=== PATIENT | male | born 1935 | race Caucasian/White ===

== ENCOUNTER 2017-03-24 08:42 | Day surgery (SDC) | payer OTHER ==
[2017-03-21 15:28] VITALS: BMI 24.9
[2017-03-24] MEDS ORDERED: PROPOFOL 20 ML ONE ×2 (10:19)
[2017-03-24 11:22] VITALS: TEMP 97.5
[2017-03-24 13:29] VITALS: BP 156/64; PULSE 60
--- NOTE | 2017-03-25 11:55 | PATH ---
Surgical Pathology Report Patient Name: JAREN COCHRAN [facility]. Rec. #: [id number] /Age/Gender: 1935 (Age: 82) / M Account: [id number] Location: [facility]-ENDOSCOPY Taken: 03/24/2017 Received: 03/24/2017 Reported: 03/25/2017 Physicians: Vipin Anderson M.D. Specimen(s) Received A: BX GASTRITIS B: BX GE JUNCTION Clinical History GERD, diverticular disease of colon, constipation Hiatal hernia, esophagitis, rule out Casillas's, gastritis, gastropathy, rule out metaplasia, poor prep, grade 2 hemorrhoids Final Diagnosis A. STOMACH, BIOPSY: HYPERPLASTIC FUNDIC GLAND POLYP WITH ASSOCIATED MODERATE CHRONIC GASTRITIS. ADDITIONAL PORTIONS OF GASTRIC MUCOSA WITH CHRONIC GASTRITIS AND INTESTINAL METAPLASIA. NO DYSPLASIA IDENTIFIED. MUCOSAL XANTHOMA PRESENT. IMMUNOSTAIN FOR H. PYLORI IS NEGATIVE. B. GE JUNCTION, BIOPSY: SQUAMOUS AND GASTRIC MUCOSA WITH ACUTE AND CHRONIC INFLAMMATION. NO INTESTINAL METAPLASIA IDENTIFIED (NO CASILLAS'S IDENTIFIED). Electronically Signed Marcelo Garcia M.D. Gross Description A. Received in formalin, labeled "biopsy gastritis" are 4 ruffin, irregular portions of soft tissue ranging from 0.1-0.3 cm. in greatest dimension. The specimens are submitted in toto in one cassette. B. Received in formalin, labeled "biopsy GE junction" are 2 ruffin, irregular portions of soft tissue measuring 0.1 and 0.2 cm. in greatest dimension. The specimens are submitted in toto in one cassette. /03/24/2017 saudi03/24/2017
== END 2017-03-24 12:40 | disposition home or self-care (01) ==
LOC: JASU-ENDO 08:42
PROVIDERS: ATTEND Internal Medicine Gastroenterology
PROC: 0DJD8ZZ Inspection of Lower Intestinal Tract, Via Natural or Artificial Opening Endoscopic (ICD-10-PCS; principal; 2017-03-24 10:00)
DX: Z12.11 Encounter for screening for malignant neoplasm of colon (principal); K59.00 Constipation, unspecified; K64.8 Other hemorrhoids
CPT/HCPCS: 88305-TC; 88342-TC

== ENCOUNTER 2017-09-26 07:57 | Day surgery (SDC) | payer OTHER ==
[2017-09-26 08:53] VITALS: BMI 24.9
[2017-09-26] MEDS ORDERED: PROPOFOL 20 ML ONE ×2 (09:41)
[2017-09-26 10:27] VITALS: TEMP 97.6
[2017-09-26 11:44] VITALS: BP 155/54; PULSE 53
--- NOTE | 2017-09-29 16:49 | PATH ---
Surgical Pathology Report Patient Name: JAREN COCHRAN [facility]. Rec. #: [id number] /Age/Gender: 1935 (Age: 82) / M Account: [id number] Location: [facility]-ENDOSCOPY Taken: 09/26/2017 Received: 09/26/2017 Reported: 09/29/2017 Physicians: Vipin Anderson M.D. Specimen(s) Received A: POLYPS SIGMOID B: BX POLYP TRANSVERSE COLON C: BX POLYP HEPATIC FLEXURE D: ASCENDING COLON POLYP Clinical History Constipation Diverticulosis, colon polyps, small hemorrhoids Final Diagnosis A. SIGMOID COLON, POLYP, BIOPSY: TUBULAR ADENOMA. HYPERPLASTIC POLYP(S). B. TRANSVERSE COLON, POLYP, BIOPSY: HYPERPLASTIC POLYP. C. HEPATIC FLEXURE, POLYP, BIOPSY: POLYPOID COLONIC MUCOSA WITH PROMINENT LYMPHOID AGGREGATE AND SUPERFICIAL HYPERPLASTIC FEATURES. D. ASCENDING COLON, POLYP, BIOPSY: HYPERPLASTIC POLYP. Electronically Signed Catherine Gardiner M.D. Gross Description A. Received in formalin, labeled "biopsy sigmoid polyps" are 4 ruffin, irregular portions of soft tissue ranging from 0.2-0.3 cm. in greatest dimension. The specimens are submitted in toto in one cassette. B. Received in formalin, labeled "biopsy polyp transverse colon" are 2 ruffin, irregular portions of soft tissue averaging 0.3 cm. in greatest dimension. The specimens are submitted in toto in one cassette. C. Received in formalin, labeled "biopsy polyp hepatic flexure" is a ruffin, irregular portion of soft tissue measuring 1.1 cm. in greatest dimension. The specimen is submitted in toto in one cassette. D. Received in formalin, labeled "biopsy polyp ascending colon" are 3 ruffin, irregular portions of soft tissue ranging from 0.1-0.3 cm. in greatest dimension. The specimens are submitted in toto in one cassette. 09/26/201709/26/2017
== END 2017-09-26 11:35 | disposition home or self-care (01) ==
LOC: JASU-ENDO 07:57
PROVIDERS: ATTEND Internal Medicine Gastroenterology
PROC: 0DBK8ZX Excision of Ascending Colon, Via Natural or Artificial Opening Endoscopic, Diagnostic (ICD-10-PCS; 2017-09-26)
PROC: 0DBL8ZX Excision of Transverse Colon, Via Natural or Artificial Opening Endoscopic, Diagnostic (ICD-10-PCS; 2017-09-26)
PROC: 0DBN8ZX Excision of Sigmoid Colon, Via Natural or Artificial Opening Endoscopic, Diagnostic (ICD-10-PCS; principal; 2017-09-26 09:30)
DX: K57.30 Diverticulosis of large intestine without perforation or abscess without bleeding (principal); D12.2 Benign neoplasm of ascending colon; D12.5 Benign neoplasm of sigmoid colon; D12.3 Benign neoplasm of transverse colon; K64.8 Other hemorrhoids; K59.00 Constipation, unspecified
CPT/HCPCS: 88305-TC

== ENCOUNTER 2018-09-13 01:17 | Emergency (ER) | payer OTHER ==
[2018-09-13 01:35] VITALS: BP 173/61; PULSE 60; TEMP 97.9; BMI 30.1
--- NOTE | 2018-09-13 02:42 | PDOC ---
Attending Attestation - Resident Resident Name: Sera Bull - ED Attending Attestation I have performed the following: I have examined & evaluated the patient, The case was reviewed & discussed with the resident, I agree w/resident's findings & plan
[2018-09-13] MEDS ORDERED: ACETAMINOPHEN 325 MG TABLET (FP) PO ONE (02:45)
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
== END 2018-09-13 05:17 | disposition home or self-care (01) ==
LOC: JER 01:17
DX: S20.211A Contusion of right front wall of thorax, initial encounter (principal); W10.8XXA Fall (on) (from) other stairs and steps, initial encounter; Y93.89 Activity, other specified; Y92.89 Other specified places as the place of occurrence of the external cause; Y99.8 Other external cause status; I10 Essential (primary) hypertension; E11.9 Type 2 diabetes mellitus without complications; Z79.84 Long term (current) use of oral hypoglycemic drugs; E78.5 Hyperlipidemia, unspecified
CPT/HCPCS: 71046-TC-FY; 99282-25

== ENCOUNTER 2020-10-12 12:18 | Emergency (ER) | payer OTHER ==
[2020-10-12 12:45] VITALS: BP 168/61; PULSE 73; TEMP 97.8; BMI 30.1
== END 2020-10-12 13:59 | disposition home or self-care (01) ==
LOC: JER 12:18
DX: U07.1 COVID-19 (principal)
CPT/HCPCS: 99283-25; C9803; U0003

== ENCOUNTER 2020-10-19 18:52 | Inpatient (IN) | payer OTHER ==
[2020-10-19 20:01] LABS: BASO % 0.1 % (0-2.0); EOS % 0.3 % (0-4.5); HEMATOCRIT 37.5 % (35.4-49); HEMOGLOBIN 12.1 GM/dL (11.7-16.9); LYMPH % 6.1 % (8-40); MCH 26.2 pg (25.7-33.7); MCHC 32.4 g/dl (32.0-35.9); MEAN CELL VOLUME 80.8 fl (80-96); MEAN PLT VOLUME 7.5 fl (7.5-11.1); MONO % 13.3 % (3.8-10.2); NEUT % 80.2 % (42.8-82.8); PLATELET COUNT 331 K/MM3 (134-434); RBC 4.63 M/mm3 (4.00-5.60); RDW 16.6 % (11.9-15.9); WHITE BLOOD COUNT 8.4 K/mm3 (4.0-10.0)
[2020-10-19 20:09] LABS: INR 1.07 (0.83-1.09); PROTHROMBIN TIME (PATIENT) 12.9 SEC (9.7-13.0)
[2020-10-19 20:11] LABS: ACTIVATED PTT 28.6 SECONDS (25.2-36.5)
[2020-10-19 20:20] LABS: BLOOD UREA NITROGEN 12.3 mg/dL (7-18); CALCIUM 7.8 mg/dL (8.5-10.1)
[2020-10-19 20:22] LABS: MAGNESIUM 1.7 mg/dL (1.8-2.4)
[2020-10-19 20:24] LABS: CREATININE 0.9 mg/dL (0.55-1.3)
[2020-10-19] MEDS ORDERED: SODIUM CHLORIDE 500 ML IV STA (20:24)
[2020-10-19 20:26] LABS: BILIRUBIN,TOTAL 0.8 mg/dL (0.2-1); PHOSPHOROUS 2.2 mg/dL (2.5-4.9); TOT PROT 7.2 g/dl (6.4-8.2)
[2020-10-19 20:29] LABS: N-TERMINAL BNP 525.6 pg/ml (5-450)
[2020-10-19] MEDS ORDERED: MAGNESIUM SULF 50% (8.12 MEQ/2 ML-1 GM VIAL) IVPB ONE (22:24)
[2020-10-19] MEDS ORDERED: ALBUTEROL SO4 HFA INHALER IH PRN (22:31)
[2020-10-19] MEDS ORDERED: MAGNESIUM SULFATE IN WATER 2 GM/50 ML IVPB IVPB ONE (22:43)
[2020-10-19] MEDS ORDERED: AZITHROMYCIN IVPB 500 MG/250 ML BAG IVPB ONE (22:51)
[2020-10-19] MEDS ORDERED: CEFTRIAXONE 1 GM in DEXTROSE 5%-WATER - 50 ML IVPB ONE (22:52)
[2020-10-19 23:02] LABS: EPI CELLS 3 /uL (0-25.1); HYALINE CASTS 0 /uL (0-3.1); URINE APPEARANCE CLEAR; URINE BACTERIA 0 /uL (0-1359); URINE BILIRUBIN NEGATIVE (NEGATIVE); URINE COLOR YELLOW; URINE GLUCOSE (UA) NEGATIVE (NEGATIVE); URINE KETONE 1+ (NEGATIVE); URINE LEUK ESTERASE NEGATIVE (NEGATIVE); URINE NITRITE NEGATIVE (NEGATIVE); URINE PROTEIN 3+ (NEGATIVE); URINE RBC 11 /uL (0-23.9); URINE WBC 3 /uL (0-25.8)
[2020-10-19 23:29] LABS: CALCIUM 7.6 mg/dL (8.5-10.1)
[2020-10-19 23:30] LABS: BLOOD UREA NITROGEN 12.2 mg/dL (7-18)
[2020-10-19 23:33] LABS: CREATININE 0.8 mg/dL (0.55-1.3)
[2020-10-20] MEDS ORDERED: CEFTRIAXONE 1 GM/50 ML BAG ONE (00:04)
[2020-10-20] MEDS ORDERED: AZITHROMYCIN IVPB 500 MG/250 ML BAG IVPB ONE (00:04)
[2020-10-20] MEDS ORDERED: ACETAMINOPHEN 500 MG TABLET (FP) PO ONE (05:25)
[2020-10-20] MEDS ORDERED: SODIUM CHLORIDE 250 ML IV STA (06:06)
[2020-10-20 08:23] LABS: BASO % 0.4 % (0-2.0); EOS % 0.1 % (0-4.5); HEMATOCRIT 35.7 % (35.4-49); HEMOGLOBIN 11.5 GM/dL (11.7-16.9); LYMPH % 6.1 % (8-40); MCH 25.9 pg (25.7-33.7); MCHC 32.1 g/dl (32.0-35.9); MEAN CELL VOLUME 80.7 fl (80-96); MEAN PLT VOLUME 7.9 fl (7.5-11.1); MONO % 10.9 % (3.8-10.2); NEUT % 82.5 % (42.8-82.8); PLATELET COUNT 292 K/MM3 (134-434); RBC 4.42 M/mm3 (4.00-5.60); WHITE BLOOD COUNT 8.3 K/mm3 (4.0-10.0)
[2020-10-20 08:38] LABS: BLOOD UREA NITROGEN 11.5 mg/dL (7-18)
[2020-10-20 08:39] LABS: CALCIUM 7.5 mg/dL (8.5-10.1)
[2020-10-20 08:40] LABS: ALBUMIN 2.8 g/dl (3.4-5.0); MAGNESIUM 2.5 mg/dL (1.8-2.4)
[2020-10-20 08:43] LABS: CREATININE 0.8 mg/dL (0.55-1.3)
[2020-10-20 08:45] LABS: BILIRUBIN,TOTAL 0.9 mg/dL (0.2-1)
[2020-10-20] MEDS ORDERED: DEXTROSE 5%-WATER - 50 ML IVPB ONE (09:23)
[2020-10-20] MEDS ORDERED: cefTRIAXone SODIUM 1 GM VIAL ONE (09:23)
[2020-10-20] MEDS: ZINC SULFATE 220 MG CAPSULE (FP) PO SCH (09:36)
[2020-10-20] MEDS: ASCORBIC ACID 500 MG TABLET (FP) PO SCH (09:36)
[2020-10-20] MEDS: CHOLECALCIFEROL (VIT D3) 1,000 UNIT (25 MCG) TABLET PO SCH (09:36)
[2020-10-20] MEDS: AZITHROMYCIN IVPB 500 MG/250 ML BAG IVPB SCH (09:37)
[2020-10-20] MEDS ORDERED: ENOXAPARIN NA (PORCINE) 40 MG/0.4 ML DISP.SYRIN SQ SCH (10:00)
[2020-10-20 10:17] LABS: URIC ACID 4.1 mg/dL (2.6-7.2)
[2020-10-20] MEDS: CEFTRIAXONE 1 GM in DEXTROSE 5%-WATER - 50 ML IVPB SCH (10:41)
[2020-10-20] MEDS ORDERED: REMDESIVIR 200 MG in SODIUM CHLORIDE 210 ML IVPB ONE (13:00)
[2020-10-20] MEDS: APIXABAN 5 MG TABLET PO SCH ×2 (13:39→22:48)
[2020-10-20] MEDS: SODIUM CHLORIDE 1,000 ML IV SCH (13:39)
[2020-10-20 15:26] LABS: BLOOD UREA NITROGEN 9.6 mg/dL (7-18)
[2020-10-20 15:30] LABS: CREATININE 0.8 mg/dL (0.55-1.3)
[2020-10-20] MEDS ORDERED: INSULIN SLIDING SCALE (NOVOLOG) 1 VIAL SQ SCH (16:30)
[2020-10-20] MEDS: INSULIN SLIDING SCALE (NOVOLOG) 1 VIAL SQ SCH ×2 (17:30→22:48)
[2020-10-20] MEDS: ATORVASTATIN CA 10 MG TABLET (FP) PO SCH (22:47)
[2020-10-20] MEDS: CARVEDILOL 3.125 MG TABLET (FP) PO SCH (22:48)
[2020-10-21] MEDS: INSULIN SLIDING SCALE (NOVOLOG) 1 VIAL SQ SCH ×4 (06:26→22:18)
[2020-10-21 07:17] LABS: BASO % 0.5 % (0-2.0); EOS % 0.5 % (0-4.5); HEMATOCRIT 35.2 % (35.4-49); HEMOGLOBIN 11.2 GM/dL (11.7-16.9); LYMPH % 8.9 % (8-40); MCH 25.5 pg (25.7-33.7); MCHC 31.9 g/dl (32.0-35.9); MEAN PLT VOLUME 7.6 fl (7.5-11.1); MONO % 12.9 % (3.8-10.2); NEUT % 77.2 % (42.8-82.8); PLATELET COUNT 359 K/MM3 (134-434); RDW 16.4 % (11.9-15.9); WHITE BLOOD COUNT 8.1 K/mm3 (4.0-10.0)
[2020-10-21 07:31] LABS: CALCIUM 7.2 mg/dL (8.5-10.1)
[2020-10-21 07:32] LABS: ALBUMIN 2.4 g/dl (3.4-5.0); BLOOD UREA NITROGEN 11.6 mg/dL (7-18)
[2020-10-21 07:35] LABS: CREATININE 0.7 mg/dL (0.55-1.3)
[2020-10-21 07:36] LABS: BILIRUBIN,TOTAL 0.8 mg/dL (0.2-1); TOT PROT 6.4 g/dl (6.4-8.2)
[2020-10-21] MEDS ORDERED: cefTRIAXone SODIUM 1 GM VIAL ONE (08:57)
[2020-10-21] MEDS ORDERED: DEXTROSE 5%-WATER - 50 ML IVPB ONE (08:58)
[2020-10-21] MEDS: CARVEDILOL 3.125 MG TABLET (FP) PO SCH ×2 (09:11→22:07)
[2020-10-21] MEDS: ZINC SULFATE 220 MG CAPSULE (FP) PO SCH (09:12)
[2020-10-21] MEDS: CEFTRIAXONE 1 GM in DEXTROSE 5%-WATER - 50 ML IVPB SCH (09:12)
[2020-10-21] MEDS: TAMSULOSIN HCL 0.4 MG CAP PO SCH (09:12)
[2020-10-21] MEDS: AZITHROMYCIN IVPB 500 MG/250 ML BAG IVPB SCH (09:12)
[2020-10-21] MEDS: GABAPENTIN 300 MG CAPSULE PO SCH (09:12)
[2020-10-21] MEDS: APIXABAN 5 MG TABLET PO SCH ×2 (09:12→22:07)
[2020-10-21] MEDS: ASCORBIC ACID 500 MG TABLET (FP) PO SCH (09:12)
[2020-10-21] MEDS: CHOLECALCIFEROL (VIT D3) 1,000 UNIT (25 MCG) TABLET PO SCH (09:12)
[2020-10-21] MEDS: DEXAMETHASONE SOD PHOSPHATE 4 MG/1 ML VIAL IVPUSH SCH (09:15)
[2020-10-21 11:19] LABS: ERYTHROCYTE SEDIMENTATION RATE 82 mm/hr (0-20)
[2020-10-21] MEDS: ACETAMINOPHEN 325 MG TABLET (FP) PO PRN (11:19)
[2020-10-21] MEDS ORDERED: PT OWN MED DRAWER 7, Y5N ONE (12:21)
[2020-10-21] MEDS: REMDESIVIR 100 MG in SODIUM CHLORIDE 230 ML IVPB SCH (12:44)
[2020-10-21] MEDS: SODIUM CHLORIDE 1,000 ML IV SCH (18:02)
[2020-10-21] MEDS: ATORVASTATIN CA 10 MG TABLET (FP) PO SCH (22:07)
[2020-10-22] MEDS: INSULIN SLIDING SCALE (NOVOLOG) 1 VIAL SQ SCH ×4 (06:20→21:33)
[2020-10-22] MEDS: SODIUM CHLORIDE 1,000 ML IV SCH ×2 (06:20→13:30)
[2020-10-22 06:59] LABS: HEMOGLOBIN 11.5 GM/dL (11.7-16.9); MCH 26.7 pg (25.7-33.7); MEAN CELL VOLUME 80.9 fl (80-96); MEAN PLT VOLUME 7.7 fl (7.5-11.1); PLATELET COUNT 346 K/MM3 (134-434); RBC 4.32 M/mm3 (4.00-5.60); RDW 16.4 % (11.9-15.9); WHITE BLOOD COUNT 9.5 K/mm3 (4.0-10.0)
[2020-10-22 07:16] LABS: CALCIUM 7.2 mg/dL (8.5-10.1)
[2020-10-22 07:17] LABS: BLOOD UREA NITROGEN 15.9 mg/dL (7-18); MAGNESIUM 2.5 mg/dL (1.8-2.4)
[2020-10-22 07:18] LABS: BILIRUBIN,TOTAL 0.6 mg/dL (0.2-1)
[2020-10-22 07:20] LABS: CREATININE 0.6 mg/dL (0.55-1.3)
[2020-10-22] MEDS ORDERED: cefTRIAXone SODIUM 1 GM VIAL ONE (09:20)
[2020-10-22] MEDS ORDERED: DEXTROSE 5%-WATER - 50 ML IVPB ONE (09:20)
[2020-10-22] MEDS: CEFTRIAXONE 1 GM in DEXTROSE 5%-WATER - 50 ML IVPB SCH (09:27)
[2020-10-22] MEDS: DEXAMETHASONE SOD PHOSPHATE 4 MG/1 ML VIAL IVPUSH SCH (09:28)
[2020-10-22] MEDS: CHOLECALCIFEROL (VIT D3) 1,000 UNIT (25 MCG) TABLET PO SCH (09:29)
[2020-10-22] MEDS: ZINC SULFATE 220 MG CAPSULE (FP) PO SCH (09:29)
[2020-10-22] MEDS: TAMSULOSIN HCL 0.4 MG CAP PO SCH (09:29)
[2020-10-22] MEDS: APIXABAN 5 MG TABLET PO SCH ×2 (09:29→21:33)
[2020-10-22] MEDS: GABAPENTIN 300 MG CAPSULE PO SCH (09:29)
[2020-10-22] MEDS: CARVEDILOL 3.125 MG TABLET (FP) PO SCH ×2 (09:29→21:33)
[2020-10-22] MEDS: ASCORBIC ACID 500 MG TABLET (FP) PO SCH (09:29)
[2020-10-22] MEDS: AZITHROMYCIN IVPB 500 MG/250 ML BAG IVPB SCH (10:33)
[2020-10-22 10:38] LABS: ERYTHROCYTE SEDIMENTATION RATE 80 mm/hr (0-20)
[2020-10-22] MEDS: REMDESIVIR 100 MG in SODIUM CHLORIDE 230 ML IVPB SCH (13:28)
[2020-10-22] MEDS: ATORVASTATIN CA 10 MG TABLET (FP) PO SCH (21:33)
[2020-10-23] MEDS: INSULIN SLIDING SCALE (NOVOLOG) 1 VIAL SQ SCH ×4 (06:37→21:54)
[2020-10-23] MEDS: SODIUM CHLORIDE 1,000 ML IV SCH ×2 (06:37→13:05)
[2020-10-23] MEDS ORDERED: cefTRIAXone SODIUM 1 GM VIAL ONE (08:41)
[2020-10-23] MEDS ORDERED: DEXTROSE 5%-WATER - 50 ML IVPB ONE (08:42)
[2020-10-23] MEDS: GABAPENTIN 300 MG CAPSULE PO SCH (09:05)
[2020-10-23] MEDS: TAMSULOSIN HCL 0.4 MG CAP PO SCH (09:05)
[2020-10-23] MEDS: ZINC SULFATE 220 MG CAPSULE (FP) PO SCH (09:05)
[2020-10-23] MEDS: CHOLECALCIFEROL (VIT D3) 1,000 UNIT (25 MCG) TABLET PO SCH (09:06)
[2020-10-23] MEDS: AZITHROMYCIN IVPB 500 MG/250 ML BAG IVPB SCH (09:06)
[2020-10-23] MEDS: APIXABAN 5 MG TABLET PO SCH ×2 (09:06→21:48)
[2020-10-23] MEDS: DEXAMETHASONE SOD PHOSPHATE 4 MG/1 ML VIAL IVPUSH SCH (09:06)
[2020-10-23] MEDS: CARVEDILOL 3.125 MG TABLET (FP) PO SCH ×2 (09:06→21:48)
[2020-10-23] MEDS: ASCORBIC ACID 500 MG TABLET (FP) PO SCH (09:06)
[2020-10-23] MEDS: CEFTRIAXONE 1 GM in DEXTROSE 5%-WATER - 50 ML IVPB SCH (10:25)
[2020-10-23 11:59] LABS: CALCIUM 7.4 mg/dL (8.5-10.1)
[2020-10-23 12:00] LABS: BLOOD UREA NITROGEN 13.5 mg/dL (7-18)
[2020-10-23 12:03] LABS: CREATININE 0.7 mg/dL (0.55-1.3)
[2020-10-23] MEDS ORDERED: POTASSIUM CHLORIDE TABS 20 MEQ TABLET.ER (FP) PO ONE (12:38)
[2020-10-23] MEDS: REMDESIVIR 100 MG in SODIUM CHLORIDE 230 ML IVPB SCH (13:05)
[2020-10-23] MEDS: DOCUSATE SODIUM 100 MG CAPSULE (FP) PO SCH ×2 (15:06→21:48)
[2020-10-23] MEDS: ATORVASTATIN CA 10 MG TABLET (FP) PO SCH (21:48)
[2020-10-23] MEDS: SENNOSIDES 8.6MG TABLET (FP) PO SCH (21:48)
[2020-10-24] MEDS: DOCUSATE SODIUM 100 MG CAPSULE (FP) PO SCH ×3 (06:15→21:08)
[2020-10-24] MEDS: INSULIN SLIDING SCALE (NOVOLOG) 1 VIAL SQ SCH ×4 (06:16→21:21)
[2020-10-24 08:18] LABS: BASO % 0.2 % (0-2.0); EOS % 0.1 % (0-4.5); HEMATOCRIT 34.1 % (35.4-49); HEMOGLOBIN 11.1 GM/dL (11.7-16.9); LYMPH % 5.3 % (8-40); MCH 26.3 pg (25.7-33.7); MCHC 32.6 g/dl (32.0-35.9); MEAN CELL VOLUME 80.6 fl (80-96); MEAN PLT VOLUME 7.5 fl (7.5-11.1); MONO % 6.8 % (3.8-10.2); NEUT % 87.6 % (42.8-82.8); PLATELET COUNT 268 K/MM3 (134-434); RBC 4.23 M/mm3 (4.00-5.60); RDW 16.6 % (11.9-15.9); WHITE BLOOD COUNT 12.5 K/mm3 (4.0-10.0)
[2020-10-24 08:29] LABS: ALBUMIN 2.2 g/dl (3.4-5.0); BLOOD UREA NITROGEN 12.9 mg/dL (7-18); CALCIUM 7.4 mg/dL (8.5-10.1)
[2020-10-24 08:32] LABS: CREATININE 0.6 mg/dL (0.55-1.3)
[2020-10-24 08:33] LABS: MAGNESIUM 1.7 mg/dL (1.8-2.4); PHOSPHOROUS 2.3 mg/dL (2.5-4.9)
[2020-10-24 08:34] LABS: BILIRUBIN,TOTAL 0.8 mg/dL (0.2-1); TOT PROT 6.1 g/dl (6.4-8.2)
[2020-10-24] MEDS ORDERED: MAGNESIUM OXIDE 400 MG TABLET (FP) PO ONE (09:00)
[2020-10-24] MEDS ORDERED: POTASSIUM CHLORIDE ORAL LIQUID 20 MEQ/15 ML PO ONE (09:00)
[2020-10-24] MEDS ORDERED: NAPH,MB-DB/K PH,MBDB POWDER PACKET PO ONE (09:00)
[2020-10-24] MEDS ORDERED: cefTRIAXone SODIUM 1 GM VIAL ONE (09:50)
[2020-10-24] MEDS ORDERED: DEXTROSE 5%-WATER - 50 ML IVPB ONE (09:50)
[2020-10-24] MEDS: ACETAMINOPHEN 325 MG TABLET (FP) PO PRN (10:22)
[2020-10-24] MEDS: CARVEDILOL 3.125 MG TABLET (FP) PO SCH ×2 (10:22→21:08)
[2020-10-24] MEDS: CHOLECALCIFEROL (VIT D3) 1,000 UNIT (25 MCG) TABLET PO SCH (10:22)
[2020-10-24] MEDS: APIXABAN 5 MG TABLET PO SCH ×2 (10:22→21:08)
[2020-10-24] MEDS: ASCORBIC ACID 500 MG TABLET (FP) PO SCH (10:22)
[2020-10-24] MEDS: ZINC SULFATE 220 MG CAPSULE (FP) PO SCH (10:23)
[2020-10-24] MEDS: GABAPENTIN 300 MG CAPSULE PO SCH (10:23)
[2020-10-24] MEDS: DEXAMETHASONE SOD PHOSPHATE 4 MG/1 ML VIAL IVPUSH SCH (10:23)
[2020-10-24] MEDS: TAMSULOSIN HCL 0.4 MG CAP PO SCH (10:23)
[2020-10-24] MEDS: AZITHROMYCIN IVPB 500 MG/250 ML BAG IVPB SCH (10:30)
[2020-10-24] MEDS: CEFTRIAXONE 1 GM in DEXTROSE 5%-WATER - 50 ML IVPB SCH (12:02)
[2020-10-24] MEDS: REMDESIVIR 100 MG in SODIUM CHLORIDE 230 ML IVPB SCH (14:58)
[2020-10-24] MEDS: ATORVASTATIN CA 10 MG TABLET (FP) PO SCH (21:08)
[2020-10-24] MEDS: SENNOSIDES 8.6MG TABLET (FP) PO SCH (21:08)
[2020-10-25] MEDS: DOCUSATE SODIUM 100 MG CAPSULE (FP) PO SCH ×3 (06:47→21:07)
[2020-10-25] MEDS: INSULIN (LEVEMIR) 100 UNITS/ML UNITS SQ SCH (06:48)
[2020-10-25] MEDS: INSULIN SLIDING SCALE (NOVOLOG) 1 VIAL SQ SCH ×4 (06:51→21:20)
[2020-10-25 08:50] LABS: BASO % 0.6 % (0-2.0); EOS % 0.1 % (0-4.5); HEMATOCRIT 34.9 % (35.4-49); HEMOGLOBIN 11.3 GM/dL (11.7-16.9); LYMPH % 4.4 % (8-40); MCH 26.2 pg (25.7-33.7); MCHC 32.4 g/dl (32.0-35.9); MEAN PLT VOLUME 7.6 fl (7.5-11.1); MONO % 9.2 % (3.8-10.2); NEUT % 85.7 % (42.8-82.8); PLATELET COUNT 235 K/MM3 (134-434); RDW 16.6 % (11.9-15.9); WHITE BLOOD COUNT 15.2 K/mm3 (4.0-10.0)
[2020-10-25 09:09] LABS: ALBUMIN 2.2 g/dl (3.4-5.0); BLOOD UREA NITROGEN 14.2 mg/dL (7-18); CALCIUM 7.5 mg/dL (8.5-10.1); MAGNESIUM 1.9 mg/dL (1.8-2.4)
[2020-10-25 09:12] LABS: CREATININE 0.6 mg/dL (0.55-1.3)
[2020-10-25 09:13] LABS: PHOSPHOROUS 2.9 mg/dL (2.5-4.9)
[2020-10-25] MEDS ORDERED: cefTRIAXone SODIUM 1 GM VIAL ONE (11:13)
[2020-10-25] MEDS ORDERED: DEXTROSE 5%-WATER - 50 ML IVPB ONE (11:13)
[2020-10-25] MEDS: ENOXAPARIN NA (PORCINE) 80 MG/0.8 ML DISP.SYRIN SQ SCH ×2 (11:23→21:07)
[2020-10-25] MEDS: AZITHROMYCIN IVPB 500 MG/250 ML BAG IVPB SCH (11:24)
[2020-10-25] MEDS: ZINC SULFATE 220 MG CAPSULE (FP) PO SCH (11:24)
[2020-10-25] MEDS: CEFTRIAXONE 1 GM in DEXTROSE 5%-WATER - 50 ML IVPB SCH (11:24)
[2020-10-25] MEDS: DEXAMETHASONE SOD PHOSPHATE 4 MG/1 ML VIAL IVPUSH SCH (11:24)
[2020-10-25] MEDS: CARVEDILOL 3.125 MG TABLET (FP) PO SCH ×2 (11:25→21:07)
[2020-10-25] MEDS: CHOLECALCIFEROL (VIT D3) 1,000 UNIT (25 MCG) TABLET PO SCH (11:25)
[2020-10-25] MEDS: ASCORBIC ACID 500 MG TABLET (FP) PO SCH ×2 (11:25→21:10)
[2020-10-25] MEDS: GABAPENTIN 300 MG CAPSULE PO SCH (11:25)
[2020-10-25] MEDS: TAMSULOSIN HCL 0.4 MG CAP PO SCH (11:26)
[2020-10-25] MEDS: ACETAMINOPHEN 325 MG TABLET (FP) PO PRN (12:09)
[2020-10-25 12:47] LABS: ANISOCYTOSIS 0; MACROCYTOSIS 0; OVALOCYTE 1+; PLATELET ESTIMATE NORMAL; TARGET CELLS 1+
[2020-10-25] MEDS: ATORVASTATIN CA 10 MG TABLET (FP) PO SCH (21:07)
[2020-10-25] MEDS: SENNOSIDES 8.6MG TABLET (FP) PO SCH (21:09)
[2020-10-25] MEDS: FAMOTIDINE 20 MG TABLET PO SCH (21:09)
[2020-10-26] MEDS: DOCUSATE SODIUM 100 MG CAPSULE (FP) PO SCH ×3 (06:07→23:46)
[2020-10-26] MEDS: INSULIN SLIDING SCALE (NOVOLOG) 1 VIAL SQ SCH ×4 (06:08→23:00)
[2020-10-26] MEDS: INSULIN (LEVEMIR) 100 UNITS/ML UNITS SQ SCH (06:10)
[2020-10-26 07:44] LABS: BASO % 0.9 % (0-2.0); HEMATOCRIT 34.5 % (35.4-49); HEMOGLOBIN 11.2 GM/dL (11.7-16.9); LYMPH % 4.8 % (8-40); MCH 26.5 pg (25.7-33.7); MCHC 32.5 g/dl (32.0-35.9); MEAN CELL VOLUME 81.4 fl (80-96); MEAN PLT VOLUME 8.2 fl (7.5-11.1); MONO % 13.2 % (3.8-10.2); NEUT % 81.1 % (42.8-82.8); PLATELET COUNT 188 K/MM3 (134-434); RBC 4.24 M/mm3 (4.00-5.60); RDW 16.5 % (11.9-15.9); WHITE BLOOD COUNT 13.4 K/mm3 (4.0-10.0)
[2020-10-26 07:48] LABS: ALBUMIN 2.2 g/dl (3.4-5.0); BLOOD UREA NITROGEN 15.8 mg/dL (7-18); CALCIUM 7.5 mg/dL (8.5-10.1)
[2020-10-26 07:49] LABS: MAGNESIUM 1.9 mg/dL (1.8-2.4)
[2020-10-26 07:51] LABS: CREATININE 0.7 mg/dL (0.55-1.3)
[2020-10-26 07:52] LABS: BILIRUBIN,TOTAL 0.8 mg/dL (0.2-1); PHOSPHOROUS 3.9 mg/dL (2.5-4.9)
[2020-10-26] MEDS ORDERED: cefTRIAXone SODIUM 1 GM VIAL ONE (08:53)
[2020-10-26] MEDS ORDERED: DEXTROSE 5%-WATER - 50 ML IVPB ONE (08:53)
[2020-10-26] MEDS: CEFTRIAXONE 1 GM in DEXTROSE 5%-WATER - 50 ML IVPB SCH (09:33)
[2020-10-26] MEDS: DEXAMETHASONE SOD PHOSPHATE 4 MG/1 ML VIAL IVPUSH SCH (09:34)
[2020-10-26] MEDS: CARVEDILOL 3.125 MG TABLET (FP) PO SCH ×2 (09:34→23:46)
[2020-10-26] MEDS: ASCORBIC ACID 500 MG TABLET (FP) PO SCH ×2 (09:34→23:46)
[2020-10-26] MEDS: CHOLECALCIFEROL (VIT D3) 1,000 UNIT (25 MCG) TABLET PO SCH (09:34)
[2020-10-26] MEDS: GABAPENTIN 300 MG CAPSULE PO SCH (09:34)
[2020-10-26] MEDS: TAMSULOSIN HCL 0.4 MG CAP PO SCH (09:34)
[2020-10-26] MEDS: ZINC SULFATE 220 MG CAPSULE (FP) PO SCH (09:35)
[2020-10-26] MEDS: FAMOTIDINE 20 MG TABLET PO SCH ×2 (09:35→23:46)
[2020-10-26] MEDS: ENOXAPARIN NA (PORCINE) 80 MG/0.8 ML DISP.SYRIN SQ SCH ×2 (09:35→23:47)
[2020-10-26] MEDS ORDERED: FUROSEMIDE 40 MG/4 ML INJECTABLE VIAL IVPUSH ONE (09:50)
[2020-10-26] MEDS: SODIUM BICARBONATE 650 MG TABLET PO SCH (16:44)
[2020-10-26] MEDS: SENNOSIDES 8.6MG TABLET (FP) PO SCH (23:46)
[2020-10-26] MEDS: ATORVASTATIN CA 10 MG TABLET (FP) PO SCH (23:46)
[2020-10-26] MEDS: ACETAMINOPHEN 325 MG TABLET (FP) PO PRN (23:47)
[2020-10-27] MEDS ORDERED: ASPIRIN 81 MG CHEWABLE TABLETS PO ONE (01:35)
[2020-10-27] MEDS ORDERED: ATORVASTATIN CA 40 MG TABLET (FP) PO ONE (06:00)
[2020-10-27] MEDS: DOCUSATE SODIUM 100 MG CAPSULE (FP) PO SCH ×3 (07:05→22:52)
[2020-10-27] MEDS: INSULIN (LEVEMIR) 100 UNITS/ML UNITS SQ SCH (07:05)
[2020-10-27] MEDS: INSULIN SLIDING SCALE (NOVOLOG) 1 VIAL SQ SCH ×4 (07:16→22:35)
[2020-10-27 07:30] LABS: BASO % 0.4 % (0-2.0); EOS % 0.2 % (0-4.5); HEMATOCRIT 34.1 % (35.4-49); HEMOGLOBIN 11.4 GM/dL (11.7-16.9); LYMPH % 8.4 % (8-40); MCH 26.9 pg (25.7-33.7); MCHC 33.5 g/dl (32.0-35.9); MEAN CELL VOLUME 80.1 fl (80-96); MEAN PLT VOLUME 8.2 fl (7.5-11.1); MONO % 14.6 % (3.8-10.2); NEUT % 76.4 % (42.8-82.8); PLATELET COUNT 213 K/MM3 (134-434); RBC 4.25 M/mm3 (4.00-5.60); RDW 16.2 % (11.9-15.9)
[2020-10-27 08:09] LABS: ALBUMIN 2.2 g/dl (3.4-5.0)
[2020-10-27 08:10] LABS: CALCIUM 7.5 mg/dL (8.5-10.1); MAGNESIUM 2.1 mg/dL (1.8-2.4)
[2020-10-27 08:12] LABS: CREATININE 0.7 mg/dL (0.55-1.3); PHOSPHOROUS 4.1 mg/dL (2.5-4.9)
[2020-10-27 08:14] LABS: BILIRUBIN,TOTAL 1.1 mg/dL (0.2-1); TOT PROT 6.3 g/dl (6.4-8.2)
[2020-10-27] MEDS ORDERED: cefTRIAXone SODIUM 1 GM VIAL ONE (09:09)
[2020-10-27] MEDS ORDERED: DEXTROSE 5%-WATER - 50 ML IVPB ONE (09:10)
[2020-10-27] MEDS: DEXAMETHASONE SOD PHOSPHATE 4 MG/1 ML VIAL IVPUSH SCH (10:11)
[2020-10-27] MEDS: ENOXAPARIN NA (PORCINE) 80 MG/0.8 ML DISP.SYRIN SQ SCH ×2 (10:12→22:52)
[2020-10-27] MEDS: GABAPENTIN 300 MG CAPSULE PO SCH (10:12)
[2020-10-27] MEDS: CEFTRIAXONE 1 GM in DEXTROSE 5%-WATER - 50 ML IVPB SCH (10:12)
[2020-10-27] MEDS: SODIUM BICARBONATE 650 MG TABLET PO SCH (10:12)
[2020-10-27] MEDS: CARVEDILOL 3.125 MG TABLET (FP) PO SCH ×2 (10:12→22:53)
[2020-10-27] MEDS: CHOLECALCIFEROL (VIT D3) 1,000 UNIT (25 MCG) TABLET PO SCH (10:12)
[2020-10-27] MEDS: FAMOTIDINE 20 MG TABLET PO SCH ×2 (10:12→22:52)
[2020-10-27] MEDS: ASCORBIC ACID 500 MG TABLET (FP) PO SCH ×2 (10:12→22:53)
[2020-10-27] MEDS: TAMSULOSIN HCL 0.4 MG CAP PO SCH (10:12)
[2020-10-27] MEDS: ZINC SULFATE 220 MG CAPSULE (FP) PO SCH (10:12)
[2020-10-27] MEDS: ASPIRIN 81 MG CHEWABLE TABLETS PO SCH (10:12)
[2020-10-27] MEDS ORDERED: CLOPIDOGREL BISULFATE 300 MG TABLET PO ONE (14:30)
[2020-10-27] MEDS: ACETAMINOPHEN 325 MG TABLET (FP) PO PRN (22:52)
[2020-10-27] MEDS: ATORVASTATIN CA 40 MG TABLET (FP) PO SCH (22:52)
[2020-10-27] MEDS: SENNOSIDES 8.6MG TABLET (FP) PO SCH (22:53)
[2020-10-28] MEDS: DOCUSATE SODIUM 100 MG CAPSULE (FP) PO SCH ×3 (07:13→21:33)
[2020-10-28] MEDS: INSULIN (LEVEMIR) 100 UNITS/ML UNITS SQ SCH (07:13)
[2020-10-28] MEDS: INSULIN SLIDING SCALE (NOVOLOG) 1 VIAL SQ SCH ×4 (07:18→21:25)
[2020-10-28] MEDS ORDERED: cefTRIAXone SODIUM 1 GM VIAL ONE (08:27)
[2020-10-28] MEDS ORDERED: DEXTROSE 5%-WATER - 50 ML IVPB ONE (08:28)
[2020-10-28 08:46] LABS: BASO % 0.1 % (0-2.0); EOS % 0.4 % (0-4.5); HEMATOCRIT 36.2 % (35.4-49); LYMPH % 11.1 % (8-40); MCH 26.8 pg (25.7-33.7); MEAN CELL VOLUME 81.2 fl (80-96); MEAN PLT VOLUME 8.9 fl (7.5-11.1); MONO % 16.4 % (3.8-10.2); PLATELET COUNT 234 K/MM3 (134-434); RBC 4.46 M/mm3 (4.00-5.60); RDW 16.5 % (11.9-15.9); WHITE BLOOD COUNT 8.9 K/mm3 (4.0-10.0)
[2020-10-28 09:13] LABS: CALCIUM 7.6 mg/dL (8.5-10.1); CHOLESTEROL 98 mg/dL (50-200); TRIGLYCERIDES 96 mg/dL (0-150)
[2020-10-28 09:14] LABS: ALBUMIN 2.2 g/dl (3.4-5.0); BLOOD UREA NITROGEN 18.8 mg/dL (7-18); LDH 471 U/L (87-246); LDL CHOLESTEROL (ONLY SJRH) 62 mg/dL (5-100); MAGNESIUM 1.8 mg/dL (1.8-2.4)
[2020-10-28 09:16] LABS: HDL CHOLESTEROL 28 mg/dL (40-60)
[2020-10-28 09:17] LABS: CREATININE 0.6 mg/dL (0.55-1.3); PHOSPHOROUS 3.5 mg/dL (2.5-4.9)
[2020-10-28 09:18] LABS: BILIRUBIN,TOTAL 0.9 mg/dL (0.2-1)
[2020-10-28 09:19] LABS: TOT PROT 6.5 g/dl (6.4-8.2)
[2020-10-28] MEDS: CEFTRIAXONE 1 GM in DEXTROSE 5%-WATER - 50 ML IVPB SCH (09:30)
[2020-10-28] MEDS: GABAPENTIN 300 MG CAPSULE PO SCH (09:31)
[2020-10-28] MEDS: ASCORBIC ACID 500 MG TABLET (FP) PO SCH ×2 (09:31→21:33)
[2020-10-28] MEDS: TAMSULOSIN HCL 0.4 MG CAP PO SCH (09:31)
[2020-10-28] MEDS: CHOLECALCIFEROL (VIT D3) 1,000 UNIT (25 MCG) TABLET PO SCH (09:31)
[2020-10-28] MEDS: SODIUM BICARBONATE 650 MG TABLET PO SCH (09:31)
[2020-10-28] MEDS: FAMOTIDINE 20 MG TABLET PO SCH ×2 (09:31→21:34)
[2020-10-28] MEDS: ZINC SULFATE 220 MG CAPSULE (FP) PO SCH (09:31)
[2020-10-28] MEDS: CARVEDILOL 3.125 MG TABLET (FP) PO SCH ×2 (09:31→21:34)
[2020-10-28] MEDS: DEXAMETHASONE SOD PHOSPHATE 4 MG/1 ML VIAL IVPUSH SCH (09:31)
[2020-10-28] MEDS: ENOXAPARIN NA (PORCINE) 80 MG/0.8 ML DISP.SYRIN SQ SCH ×2 (09:31→21:34)
[2020-10-28] MEDS: ASPIRIN 81 MG CHEWABLE TABLETS PO SCH (09:31)
[2020-10-28] MEDS: CLOPIDOGREL BISULFATE 75 MG TABLET (FP) PO SCH (09:31)
[2020-10-28] MEDS: SENNOSIDES 8.6MG TABLET (FP) PO SCH (21:33)
[2020-10-28] MEDS: ATORVASTATIN CA 40 MG TABLET (FP) PO SCH (21:34)
[2020-10-29] MEDS ORDERED: INSULIN (NOVOLOG) ASPART 100 UNITS/ML 10ML VIAL ONE (06:02)
[2020-10-29] MEDS: INSULIN (LEVEMIR) 100 UNITS/ML UNITS SQ SCH (06:16)
[2020-10-29] MEDS: DOCUSATE SODIUM 100 MG CAPSULE (FP) PO SCH ×3 (06:16→21:40)
[2020-10-29] MEDS: INSULIN SLIDING SCALE (NOVOLOG) 1 VIAL SQ SCH ×4 (06:18→21:41)
[2020-10-29] MEDS ORDERED: cefTRIAXone SODIUM 1 GM VIAL ONE (09:56)
[2020-10-29] MEDS ORDERED: DEXTROSE 5%-WATER - 50 ML IVPB ONE (09:56)
[2020-10-29] MEDS: CEFTRIAXONE 1 GM in DEXTROSE 5%-WATER - 50 ML IVPB SCH (10:05)
[2020-10-29] MEDS: ASPIRIN 81 MG CHEWABLE TABLETS PO SCH (10:06)
[2020-10-29] MEDS: SODIUM BICARBONATE 650 MG TABLET PO SCH (10:06)
[2020-10-29] MEDS: CHOLECALCIFEROL (VIT D3) 1,000 UNIT (25 MCG) TABLET PO SCH (10:06)
[2020-10-29] MEDS: CARVEDILOL 3.125 MG TABLET (FP) PO SCH ×3 (10:06→22:38)
[2020-10-29] MEDS: GABAPENTIN 300 MG CAPSULE PO SCH (10:06)
[2020-10-29] MEDS: ENOXAPARIN NA (PORCINE) 80 MG/0.8 ML DISP.SYRIN SQ SCH ×2 (10:06→21:41)
[2020-10-29] MEDS: TAMSULOSIN HCL 0.4 MG CAP PO SCH (10:06)
[2020-10-29] MEDS: ZINC SULFATE 220 MG CAPSULE (FP) PO SCH (10:06)
[2020-10-29] MEDS: FAMOTIDINE 20 MG TABLET PO SCH ×2 (10:06→21:41)
[2020-10-29] MEDS: ASCORBIC ACID 500 MG TABLET (FP) PO SCH ×2 (10:06→21:40)
[2020-10-29] MEDS: DEXAMETHASONE SOD PHOSPHATE 4 MG/1 ML VIAL IVPUSH SCH (10:07)
[2020-10-29] MEDS: CLOPIDOGREL BISULFATE 75 MG TABLET (FP) PO SCH (10:07)
[2020-10-29] MEDS ORDERED: LISINOPRIL 5 MG TABLET PO ONE (14:55)
[2020-10-29] MEDS: ATORVASTATIN CA 40 MG TABLET (FP) PO SCH (21:40)
[2020-10-29] MEDS: SENNOSIDES 8.6MG TABLET (FP) PO SCH (21:40)
[2020-10-30] MEDS: INSULIN (LEVEMIR) 100 UNITS/ML UNITS SQ SCH (06:10)
[2020-10-30] MEDS: DOCUSATE SODIUM 100 MG CAPSULE (FP) PO SCH ×3 (06:10→22:39)
[2020-10-30] MEDS: INSULIN SLIDING SCALE (NOVOLOG) 1 VIAL SQ SCH ×4 (06:28→22:30)
[2020-10-30 08:00] LABS: HEMOGLOBIN 11.4 GM/dL (11.7-16.9); MCH 26.6 pg (25.7-33.7); MCHC 32.5 g/dl (32.0-35.9); MEAN CELL VOLUME 81.7 fl (80-96); MEAN PLT VOLUME 8.3 fl (7.5-11.1); PLATELET COUNT 309 K/MM3 (134-434); RBC 4.28 M/mm3 (4.00-5.60); RDW 16.6 % (11.9-15.9); WHITE BLOOD COUNT 11.9 K/mm3 (4.0-10.0)
[2020-10-30 08:09] LABS: ALBUMIN 2.2 g/dl (3.4-5.0); CALCIUM 7.9 mg/dL (8.5-10.1); MAGNESIUM 1.9 mg/dL (1.8-2.4)
[2020-10-30 08:12] LABS: CREATININE 0.7 mg/dL (0.55-1.3)
[2020-10-30 08:14] LABS: BILIRUBIN,TOTAL 0.7 mg/dL (0.2-1); TOT PROT 6.3 g/dl (6.4-8.2)
[2020-10-30] MEDS ORDERED: DEXTROSE 5%-WATER - 50 ML IVPB ONE (09:23)
[2020-10-30] MEDS ORDERED: cefTRIAXone SODIUM 1 GM VIAL ONE (09:23)
[2020-10-30] MEDS: FAMOTIDINE 20 MG TABLET PO SCH ×2 (10:32→22:39)
[2020-10-30] MEDS: SODIUM BICARBONATE 650 MG TABLET PO SCH (10:32)
[2020-10-30] MEDS: GABAPENTIN 300 MG CAPSULE PO SCH (10:32)
[2020-10-30] MEDS: ZINC SULFATE 220 MG CAPSULE (FP) PO SCH (10:32)
[2020-10-30] MEDS: TAMSULOSIN HCL 0.4 MG CAP PO SCH (10:32)
[2020-10-30] MEDS: CLOPIDOGREL BISULFATE 75 MG TABLET (FP) PO SCH (10:32)
[2020-10-30] MEDS: ENOXAPARIN NA (PORCINE) 80 MG/0.8 ML DISP.SYRIN SQ SCH ×2 (10:33→22:39)
[2020-10-30] MEDS: CHOLECALCIFEROL (VIT D3) 1,000 UNIT (25 MCG) TABLET PO SCH (10:33)
[2020-10-30] MEDS: ASPIRIN 81 MG CHEWABLE TABLETS PO SCH (10:33)
[2020-10-30] MEDS: CEFTRIAXONE 1 GM in DEXTROSE 5%-WATER - 50 ML IVPB SCH (10:33)
[2020-10-30] MEDS: ASCORBIC ACID 500 MG TABLET (FP) PO SCH ×2 (10:33→22:39)
[2020-10-30] MEDS: LISINOPRIL 5 MG TABLET PO SCH (10:33)
[2020-10-30] MEDS: CARVEDILOL 3.125 MG TABLET (FP) PO SCH ×2 (10:33→22:39)
[2020-10-30] MEDS: DEXAMETHASONE SOD PHOSPHATE 4 MG/1 ML VIAL IVPUSH SCH (10:34)
[2020-10-30] MEDS: ATORVASTATIN CA 40 MG TABLET (FP) PO SCH (22:39)
[2020-10-30] MEDS: SENNOSIDES 8.6MG TABLET (FP) PO SCH (22:39)
[2020-10-31] MEDS: DOCUSATE SODIUM 100 MG CAPSULE (FP) PO SCH ×3 (06:57→23:26)
[2020-10-31] MEDS: INSULIN (LEVEMIR) 100 UNITS/ML UNITS SQ SCH (06:58)
[2020-10-31] MEDS: INSULIN SLIDING SCALE (NOVOLOG) 1 VIAL SQ SCH ×4 (06:58→23:00)
[2020-10-31 07:02] LABS: MCH 26.7 pg (25.7-33.7); MCHC 32.6 g/dl (32.0-35.9); MEAN CELL VOLUME 81.9 fl (80-96); MEAN PLT VOLUME 8.3 fl (7.5-11.1); PLATELET COUNT 357 K/MM3 (134-434); RBC 4.52 M/mm3 (4.00-5.60); RDW 16.9 % (11.9-15.9); WHITE BLOOD COUNT 11.2 K/mm3 (4.0-10.0)
[2020-10-31 07:38] LABS: BLOOD UREA NITROGEN 19.8 mg/dL (7-18); CALCIUM 7.9 mg/dL (8.5-10.1)
[2020-10-31 07:39] LABS: ALBUMIN 2.4 g/dl (3.4-5.0); MAGNESIUM 1.9 mg/dL (1.8-2.4)
[2020-10-31 07:41] LABS: CREATININE 0.6 mg/dL (0.55-1.3); PHOSPHOROUS 3.8 mg/dL (2.5-4.9)
[2020-10-31 07:42] LABS: BILIRUBIN,TOTAL 0.7 mg/dL (0.2-1)
[2020-10-31 07:44] LABS: TOT PROT 6.5 g/dl (6.4-8.2)
[2020-10-31] MEDS ORDERED: REGADENOSON 0.4 MG/5 ML PRE-FILLED SYRINGE IVPUSH ONE ×2 (10:30→10:35)
[2020-10-31] MEDS: ENOXAPARIN NA (PORCINE) 80 MG/0.8 ML DISP.SYRIN SQ SCH (13:09)
[2020-10-31] MEDS: CARVEDILOL 3.125 MG TABLET (FP) PO SCH ×2 (13:10→23:26)
[2020-10-31] MEDS: CHOLECALCIFEROL (VIT D3) 1,000 UNIT (25 MCG) TABLET PO SCH (13:10)
[2020-10-31] MEDS: ASPIRIN 81 MG CHEWABLE TABLETS PO SCH (13:10)
[2020-10-31] MEDS: SODIUM BICARBONATE 650 MG TABLET PO SCH (13:10)
[2020-10-31] MEDS: ASCORBIC ACID 500 MG TABLET (FP) PO SCH ×2 (13:10→23:25)
[2020-10-31] MEDS: GABAPENTIN 300 MG CAPSULE PO SCH (13:11)
[2020-10-31] MEDS: TAMSULOSIN HCL 0.4 MG CAP PO SCH (13:12)
[2020-10-31] MEDS: CLOPIDOGREL BISULFATE 75 MG TABLET (FP) PO SCH (13:12)
[2020-10-31] MEDS: ZINC SULFATE 220 MG CAPSULE (FP) PO SCH (13:12)
[2020-10-31] MEDS: FAMOTIDINE 20 MG TABLET PO SCH ×2 (13:13→23:26)
[2020-10-31] MEDS: LISINOPRIL 5 MG TABLET PO SCH (13:13)
[2020-10-31] MEDS: APIXABAN 2.5 MG TABLET PO SCH (23:25)
[2020-10-31] MEDS: ATORVASTATIN CA 40 MG TABLET (FP) PO SCH (23:26)
[2020-10-31] MEDS: SENNOSIDES 8.6MG TABLET (FP) PO SCH (23:26)
[2020-11-01 07:03] LABS: BASO % 0.8 % (0-2.0); EOS % 1.8 % (0-4.5); HEMATOCRIT 35.9 % (35.4-49); HEMOGLOBIN 11.8 GM/dL (11.7-16.9); LYMPH % 12.1 % (8-40); MCH 27.2 pg (25.7-33.7); MCHC 32.9 g/dl (32.0-35.9); MEAN CELL VOLUME 82.6 fl (80-96); MEAN PLT VOLUME 8.1 fl (7.5-11.1); NEUT % 73.3 % (42.8-82.8); PLATELET COUNT 379 K/MM3 (134-434); RBC 4.34 M/mm3 (4.00-5.60); RDW 16.9 % (11.9-15.9); WHITE BLOOD COUNT 9.6 K/mm3 (4.0-10.0)
[2020-11-01] MEDS: DOCUSATE SODIUM 100 MG CAPSULE (FP) PO SCH ×2 (07:15→13:33)
[2020-11-01] MEDS: INSULIN (LEVEMIR) 100 UNITS/ML UNITS SQ SCH ×2 (07:15→10:58)
[2020-11-01] MEDS: INSULIN SLIDING SCALE (NOVOLOG) 1 VIAL SQ SCH ×2 (07:16→10:59)
[2020-11-01 07:22] LABS: ALBUMIN 2.4 g/dl (3.4-5.0); BLOOD UREA NITROGEN 16.7 mg/dL (7-18); MAGNESIUM 1.9 mg/dL (1.8-2.4)
[2020-11-01 07:25] LABS: CREATININE 0.6 mg/dL (0.55-1.3)
[2020-11-01 07:26] LABS: BILIRUBIN,TOTAL 0.8 mg/dL (0.2-1); PHOSPHOROUS 3.7 mg/dL (2.5-4.9)
[2020-11-01 07:27] LABS: TOT PROT 6.3 g/dl (6.4-8.2)
[2020-11-01] MEDS: ASPIRIN 81 MG CHEWABLE TABLETS PO SCH (09:03)
[2020-11-01] MEDS: SODIUM BICARBONATE 650 MG TABLET PO SCH (09:03)
[2020-11-01] MEDS: APIXABAN 2.5 MG TABLET PO SCH (09:03)
[2020-11-01] MEDS: CHOLECALCIFEROL (VIT D3) 1,000 UNIT (25 MCG) TABLET PO SCH (09:03)
[2020-11-01] MEDS: FAMOTIDINE 20 MG TABLET PO SCH (09:04)
[2020-11-01] MEDS: ZINC SULFATE 220 MG CAPSULE (FP) PO SCH (09:04)
[2020-11-01] MEDS: CARVEDILOL 3.125 MG TABLET (FP) PO SCH (09:04)
[2020-11-01] MEDS: LISINOPRIL 5 MG TABLET PO SCH (09:04)
[2020-11-01] MEDS: TAMSULOSIN HCL 0.4 MG CAP PO SCH (09:04)
[2020-11-01] MEDS: ASCORBIC ACID 500 MG TABLET (FP) PO SCH (09:04)
[2020-11-01] MEDS: GABAPENTIN 300 MG CAPSULE PO SCH (09:04)
[2020-11-01 15:22] VITALS: BMI 22.6
[2020-11-01 15:44] VITALS: BP 127/57; PULSE 58; TEMP 98.2
[2020-11-05] MEDS ORDERED: ACETAMINOPHEN 325 MG TABLET (FP) PO ONE (01:41)
== END 2020-11-01 15:43 | disposition home health service (06) | DRG 177 ==
LOC: JER 18:52 → JERBED 21:50 → J4S 10-20 06:50 → J4W 10-23 12:08
PROVIDERS: ADMIT Hospitalist; ATTEND Internal Medicine
PROC: XW033E5 Introduction of Remdesivir Anti-infective into Peripheral Vein, Percutaneous Approach, New Technology Group 5 (ICD-10-PCS; principal; 2020-10-26)
PROC: XW13325 Transfusion of Convalescent Plasma (Nonautologous) into Peripheral Vein, Percutaneous Approach, New Technology Group 5 (ICD-10-PCS; 2020-10-26)
DX: U07.1 COVID-19 (principal); J12.89 Other viral pneumonia; J96.01 Acute respiratory failure with hypoxia; I21.A1 Myocardial infarction type 2; E87.1 Hypo-osmolality and hyponatremia; E87.2 Acidosis; I10 Essential (primary) hypertension; E11.9 Type 2 diabetes mellitus without complications; I25.10 Atherosclerotic heart disease of native coronary artery without angina pectoris; N40.0 Benign prostatic hyperplasia without lower urinary tract symptoms; E87.6 Hypokalemia; E86.0 Dehydration
CPT/HCPCS: 36415; 36430; 70450-TC; 71045-TC-FY; 78452-TC; 80048; 80053; 80061; 81003; 82436; 82728; 82962; 83036; 83605; 83615; 83721; 83735; 83880; 83930; 83935; 84100; 84133; 84300; 84443; 84484; 84550; 85025; 85027; 85379; 85610; 85651; 85730; 86140; 86850; 86900; 86901; 87040; 87086; 93005; 93010; 93017; 93306-TC; 94761; 97116-GP; 97161-GP; 99285-25; A9502; C9399; C9803; J2785; P9017; U0003

== ENCOUNTER 2022-11-18 13:57 | Observation (INO) | payer OTHER ==
[2022-11-18] MEDS ORDERED: ONDANSETRON 4 MG/2 ML VIAL IVPUSH ONE (16:22)
[2022-11-18] MEDS ORDERED: SODIUM CHLORIDE 1,000 ML IV STA (16:22)
[2022-11-18] MEDS ORDERED: ONDANSETRON 4 MG/2 ML VIAL ONE (16:34)
[2022-11-18 17:24] LABS: VENOUS O2 SATURATION 69.7 % (70-80); VENOUS PCO2 42.6 mmHg (38-52); VENOUS PH 7.359 (7.310-7.410)
[2022-11-18 17:29] LABS: BASO % 0.7 % (0-2.0); EOS % 1.9 % (0-4.5); HEMATOCRIT 46.6 % (35.4-49); HEMOGLOBIN 15.2 GM/dL (11.7-16.9); LYMPH % 22.6 % (8-40); MCH 27.7 pg (25.7-33.7); MCHC 32.6 g/dl (32.0-35.9); MEAN PLT VOLUME 7.3 fl (7.5-11.1); MONO % 8.8 % (3.8-10.2); PLATELET COUNT 352 10^3/uL (134-434); RBC 5.48 M/mm3 (4.00-5.60); RDW 15.2 % (11.9-15.9); WHITE BLOOD COUNT 9.9 K/mm3 (4.0-10.0)
[2022-11-18 17:48] LABS: MAGNESIUM 2.3 mg/dL (1.8-2.4)
[2022-11-18 17:52] LABS: PHOSPHOROUS 3.9 mg/dL (2.5-4.9)
[2022-11-18 18:09] LABS: LACTIC ACID 2.1 mmol/L (0.4-2.0)
[2022-11-18 18:15] LABS: URINE APPEARANCE CLEAR; URINE BILIRUBIN NEGATIVE (NEGATIVE); URINE COLOR YELLOW; URINE GLUCOSE (UA) 3+ (NEGATIVE); URINE KETONE TRACE (NEGATIVE); URINE LEUK ESTERASE NEGATIVE (NEGATIVE); URINE NITRITE NEGATIVE (NEGATIVE); URINE PROTEIN NEGATIVE (NEGATIVE); URINE UROBILINOGEN 0.2 mg/dL (0.2-1.0)
[2022-11-18 18:27] LABS: ALBUMIN 4.1 g/dl (3.4-5.0); BLOOD UREA NITROGEN 15.2 mg/dL (7-18); CALCIUM 9.3 mg/dL (8.5-10.1)
[2022-11-18 18:30] LABS: CREATININE 0.9 mg/dL (0.55-1.3)
[2022-11-18 18:31] LABS: TOT PROT 8.8 g/dl (6.4-8.2)
[2022-11-18 18:32] LABS: BILIRUBIN,TOTAL 0.5 mg/dL (0.2-1)
[2022-11-18] MEDS ORDERED: ASPIRIN 325 MG TABLET PO ONE (18:43)
[2022-11-18 18:50] LABS: INR 1.12 (0.83-1.09); PROTHROMBIN TIME (PATIENT) 12.9 SEC (9.7-13.0)
[2022-11-18 18:52] LABS: ACTIVATED PTT 33.5 SECONDS (25.2-36.5)
[2022-11-18] MEDS ORDERED: ASPIRIN 81 MG CHEWABLE TABLETS PO ONE (19:05)
[2022-11-18] MEDS ORDERED: ASPIRIN 81 MG CHEWABLE TABLETS ONE (19:06)
[2022-11-18] MEDS ORDERED: DOCUSATE SODIUM 100 MG CAPSULE (FP) PO PRN (20:30)
[2022-11-18] MEDS ORDERED: FAMOTIDINE 20 MG/50 ML IVPB 20 MG/50 ML MG IVPB ONE ×2 (20:34→21:24)
[2022-11-18] MEDS: SODIUM CHLORIDE 1,000 ML IV SCH (21:30)
[2022-11-19] MEDS ORDERED: FAMOTIDINE 20 MG/50 ML IVPB 20 MG/50 ML MG IVPB ONE (02:06)
[2022-11-19] MEDS: INSULIN SLIDING SCALE (NOVOLOG) 1 VIAL SQ SCH ×5 (02:10→23:52)
[2022-11-19 08:06] LABS: EOS % 3.5 % (0-4.5); HEMATOCRIT 40.9 % (35.4-49); HEMOGLOBIN 13.4 GM/dL (11.7-16.9); LYMPH % 34.3 % (8-40); MCH 27.7 pg (25.7-33.7); MCHC 32.8 g/dl (32.0-35.9); MEAN CELL VOLUME 84.5 fl (80-96); MEAN PLT VOLUME 7.4 fl (7.5-11.1); MONO % 11.3 % (3.8-10.2); NEUT % 49.9 % (42.8-82.8); PLATELET COUNT 301 10^3/uL (134-434); RBC 4.85 M/mm3 (4.00-5.60); WHITE BLOOD COUNT 7.3 K/mm3 (4.0-10.0)
[2022-11-19] MEDS ORDERED: ONDANSETRON 4 MG/2 ML VIAL IVPUSH PRN (08:23)
[2022-11-19] MEDS ORDERED: POLYETHYLENE GLYCOL (HEALTHYLAX) 3350 17 GM PACKET PO PRN (08:28)
[2022-11-19 08:32] LABS: CALCIUM 8.3 mg/dL (8.5-10.1)
[2022-11-19 08:34] LABS: BLOOD UREA NITROGEN 11.6 mg/dL (7-18)
[2022-11-19 08:36] LABS: CREATININE 0.7 mg/dL (0.55-1.3)
[2022-11-19] MEDS ORDERED: LOSARTAN POTASSIUM 50 MG TABLET ONE (08:59)
[2022-11-19] MEDS: LOSARTAN POTASSIUM 50 MG TABLET PO SCH (09:01)
[2022-11-19] MEDS: PANTOPRAZOLE 40 MG TABLET PO SCH (09:01)
[2022-11-19] MEDS: FLUTICASONE PROP 0.05% 16 GM NASAL SPRAY NS SCH (09:01)
[2022-11-19 14:38] VITALS: BMI 28.0
[2022-11-19] MEDS: SODIUM CHLORIDE 1,000 ML IV SCH ×2 (18:11→23:48)
[2022-11-19] MEDS: TAMSULOSIN HCL 0.4 MG CAP PO SCH (23:48)
[2022-11-19] MEDS: GABAPENTIN 300 MG CAPSULE PO SCH (23:48)
[2022-11-19] MEDS: ATORVASTATIN CA 20 MG TABLET (FP) PO SCH (23:48)
[2022-11-20] MEDS: FLUTICASONE PROP 0.05% 16 GM NASAL SPRAY NS SCH ×3 (01:03→22:18)
[2022-11-20] MEDS: INSULIN SLIDING SCALE (NOVOLOG) 1 VIAL SQ SCH ×4 (06:34→22:19)
[2022-11-20 08:51] LABS: BASO % 1.1 % (0-2.0); EOS % 2.8 % (0-4.5); HEMATOCRIT 42.3 % (35.4-49); HEMOGLOBIN 13.9 GM/dL (11.7-16.9); LYMPH % 23.3 % (8-40); MCH 27.7 pg (25.7-33.7); MCHC 32.9 g/dl (32.0-35.9); MEAN CELL VOLUME 84.4 fl (80-96); MEAN PLT VOLUME 7.3 fl (7.5-11.1); MONO % 10.6 % (3.8-10.2); NEUT % 62.2 % (42.8-82.8); PLATELET COUNT 306 10^3/uL (134-434); RBC 5.02 M/mm3 (4.00-5.60); RDW 15.3 % (11.9-15.9); WHITE BLOOD COUNT 8.6 K/mm3 (4.0-10.0)
[2022-11-20 09:10] LABS: CALCIUM 8.5 mg/dL (8.5-10.1)
[2022-11-20 09:11] LABS: ALBUMIN 3.5 g/dl (3.4-5.0); BLOOD UREA NITROGEN 8.5 mg/dL (7-18)
[2022-11-20 09:14] LABS: CREATININE 0.7 mg/dL (0.55-1.3)
[2022-11-20 09:15] LABS: BILIRUBIN,TOTAL 0.6 mg/dL (0.2-1)
[2022-11-20 09:16] LABS: TOT PROT 7.2 g/dl (6.4-8.2)
[2022-11-20] MEDS: PANTOPRAZOLE 40 MG TABLET PO SCH (09:24)
[2022-11-20] MEDS: LOSARTAN POTASSIUM 50 MG TABLET PO SCH (09:24)
[2022-11-20] MEDS: SIMETHICONE 80 MG TAB.CHEW (FP) PO SCH ×3 (13:16→22:19)
[2022-11-20] MEDS: ATORVASTATIN CA 20 MG TABLET (FP) PO SCH (22:19)
[2022-11-20] MEDS: GABAPENTIN 300 MG CAPSULE PO SCH (22:19)
[2022-11-20] MEDS: TAMSULOSIN HCL 0.4 MG CAP PO SCH (22:19)
[2022-11-21] MEDS: SIMETHICONE 80 MG TAB.CHEW (FP) PO SCH ×4 (01:48→13:15)
[2022-11-21] MEDS: INSULIN SLIDING SCALE (NOVOLOG) 1 VIAL SQ SCH ×2 (06:05→11:17)
[2022-11-21] MEDS ORDERED: BISACODYL 5 MG TABLET.DR (FP) PO SCH (10:00)
[2022-11-21] MEDS: LOSARTAN POTASSIUM 50 MG TABLET PO SCH (10:01)
[2022-11-21] MEDS: PANTOPRAZOLE 40 MG TABLET PO SCH (10:01)
[2022-11-21] MEDS: FLUTICASONE PROP 0.05% 16 GM NASAL SPRAY NS SCH (10:01)
[2022-11-21] MEDS ORDERED: ASPIRIN 81 MG CHEWABLE TABLETS PO SCH (10:15)
[2022-11-21 12:31] VITALS: RESP 18
[2022-11-21 12:33] VITALS: BP 147/80; PULSE 70; TEMP 97.7
[2022-11-21] MEDS ORDERED: POLYETHYLENE GLYCOL (HEALTHYLAX) 3350 17 GM PACKET PO SCH (13:30)
[2022-11-22] MEDS ORDERED: PATIENT'S OWN MEDICATION (NON-FORMULARY) (Dapagliflozin Propanediol 10 MG Tablet) PO SCH (10:00)
[2022-11-22] MEDS ORDERED: PATIENT'S OWN MEDICATION (NON-FORMULARY) (Linaclotide [Linzess] 145 MCG Capsule) PO SCH (10:00)
== END 2022-11-21 14:08 | disposition home or self-care (01) ==
LOC: JER 13:57 → JERBED 19:28 → J4W 11-19 13:09
PROVIDERS: ADMIT Internal Medicine; ATTEND Family Medicine
PROC: 3E033GC Introduction of Other Therapeutic Substance into Peripheral Vein, Percutaneous Approach (ICD-10-PCS; principal; 2022-11-18)
PROC: 3E013VG Introduction of Insulin into Subcutaneous Tissue, Percutaneous Approach (ICD-10-PCS; 2022-11-18)
PROC: 3E0337Z Introduction of Electrolytic and Water Balance Substance into Peripheral Vein, Percutaneous Approach (ICD-10-PCS; 2022-11-18)
DX: I25.10 Atherosclerotic heart disease of native coronary artery without angina pectoris (principal); I11.9 Hypertensive heart disease without heart failure; R77.8 Other specified abnormalities of plasma proteins; R11.10 Vomiting, unspecified; K76.0 Fatty (change of) liver, not elsewhere classified; D64.9 Anemia, unspecified; E78.5 Hyperlipidemia, unspecified; K59.00 Constipation, unspecified; N40.0 Benign prostatic hyperplasia without lower urinary tract symptoms
CPT/HCPCS: 0241U-QW; 36415; 71045-TC-FY; 80048; 80053; 81003; 82010; 82803; 82962; 83605; 83690; 83735; 84100; 84484; 85025; 85610; 85730; 87086; 93005; 93010; 93306-TC; 96361; 96365; 96372; 96375; 97116-GP; 97161-GP; 99285-25; G0378